=== PATIENT | female | born 1955 | race Caucasian/White ===

== ENCOUNTER 2020-04-03 06:02 | Day surgery (SDC) | payer SELFPAY, OTHER ==
[2019-11-02 10:58] VITALS: BMI 36.3
[2020-03-29 09:59] VITALS: BMI 36.3
--- NOTE | 2020-04-02 17:10 | HP.PCM_ITS ---
- Problem List (1) Incomplete uterovaginal prolapse Status: Chronic Comment: combo case with mike. plan [facility] BSO History and Physical Date of Admission: 04/03/20 Intake Vital Signs 03/29/20 BMI 36.3 03/29/20 Height 5 ft 6 in 03/29/20 Weight: 218 lb 03/29/20 BMI 35.2 03/29/20 BP 140/96 H Intake Visit Reasons: pre op Chief Complaint: pre op [facility] BSO 04/03/2020 [employer] Table [employer]er Required: No Is patient in pain?: No Allergies No Known Allergies Allergy (Unverified 03/29/20 09:59) Medications furosemide 20 mg tablet 20 mg PO DAILY 11/02/19 [History Confirmed 03/29/20] levothyroxine 150 mcg tablet 150 mcg PO DAILY 11/02/19 [History Confirmed 03/29/20] lisinopril 10 mg tablet 10 mg PO DAILY 11/02/19 [History Confirmed 03/29/20] Is last menstrual period known: No Post menopausal: Yes Patient : No : No [facility] Medical History Diabetes (Acute) Thyroid disorder (Acute) Surgical History H/O tubal ligation (Acute) Knee joint replacement status (Acute) Family History Mother Congestive heart failure Social History (Updated 03/29/20 @ 10:[address] 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 HPI pre op: Details: SAMY TILLEY is a 64 year old who presents for ROS Const Constitutional: Denies fatigue, fever(s), headache(s), increased appetite, poor appetite, weight gain or weight loss ENT ENT: Denies dizziness or dry mouth Cardio Card: Denies chest pain Resp Resp: Denies cough or dyspnea GI GI: Reports as per HPI; denies abdominal pain, constipation, nausea or vomiting Musc Musc: Denies joint pain, back pain or muscle weakness Skin Skin/Breast: Denies hair loss, change in hair, dry skin, breast lump, breast pain or breast skin changes Neuro Neuro: Denies dizziness Psych Psych: Denies anxiety or depression Endo Endo: Denies cold intolerance, excessive sweating, heat intolerance or increased thirst Marcelo/Lymph Hematologic/Lymphatic: Denies easy bleeding, Denies easy bruising, Denies enlarged lymph nodes Exam Const General: cooperative, healthy appearing, comfortable, no acute distress, well developed Orientation: alert [facility] Head: normal to inspection, normocephalic Ears: hearing grossly normal bilaterally, external ears normal Nose: external nose normal, nares normal Face and sinus: normal facial exam Neck Neck: normal visual inspection, no lymphadenopathy, trachea midline Thyroid: thyroid normal Chest Chest palpation & inspection: normal inspection of the chest Resp Effort & Inspection: normal respiratory effort Auscultation: clear to auscultation bilaterally Cardio Rate: regular rate Rhythm: regular rhythm Heart Sounds: S1 normal, S2 normal GI Inspection: normal to inspection, non-distended Palpation: soft, no hepatosplenomegaly Musc Cervical Spine: other Other: gross motor intact no deficits, full bilateral strength Skin General: no rashes or lesions noted Neuro General: alert, awake, moves all extremities, no focal motor deficits Motor: muscle tone normal throughout Extrem General: normal to inspection, no pedal edema Psych Appearance: grossly normal Mental Status: mental status grossly normal Affect: normal affect Speech and Movement: speech and movement normal Assessment & Plan Problems 1. Incomplete uterovaginal prolapse N81.2 combo case with mike. plan [facility] BSO Plan After discussing the patient's diagnosis and treatment plan options, patient wishes to proceed with surgical management. I have discussed with the patient the risks, benefits, and alternatives of the procedure which include but are not limited to risks of anesthesia, bleeding, infection, possible damage to bowel, bladder, or surrounding vasculature which could lead to additional surgery to evaluate any complications. Patient agrees to procedure and wishes to proceed. ACOG/uptodate references given for additional information regarding procedure. Coding Level of Care Code No Charge Diagnoses Incomplete uterovaginal prolapse N81.2 UPDATE- I have seen the patient and performed any clinically relevant updates to the history and physical exam. Katharina Montemayor MD
[2020-04-03] VITALS (15 sets, daily range): BP systolic 111–161; BP diastolic 50–75; PULSE 62–106; RESP 14–18; TEMP 36.1–37.3; O2SAT 96–100; BMI 36.7; BMI 36.8
--- NOTE | 2020-04-03 | HYST_PTH ---
PATIENT: SAMY TILLEY [place] [facility] [place][id number] AGE/SX: 64/F ROOM: RE04/03/[address]: Dr. Katharina Montemayor MD : [id number] BED: DIS: 04/04/2020 SPEC #: [id number] RECD: 04/03/20 09:43 STATUS: LEXA GONZALEZJose #: [id number] NICANOR: 04/03/20 00:[address]: Katharina Montemayor DEPT: SURGICAL PATHOLOGY RECD BY: Isaias Starks ENTERED: 04/04/20 09:43 SP TYPE: HYSTERECT OTHR DR: MD Dr. Krystle Coates MD Tissues: Uterus, NOS Procedures: Surgery Specimen Level V HEADER OPERATION: ERAS, vaginal hysterectomy PRE-OP DIAGNOSIS: Uterovaginal prolapse TISSUE SUBMITTED: Uterus MICROSCOPIC DIAGNOSIS Uterus, hysterectomy: Cervix - squamous metaplasia, chronic inflammation, nabothian cysts and hyperkeratosis. Endometrial polyp - simple hyperplasia without atypia. [place] endometrium - inactive endometrium with focal cystic change. Myometrium - adenomyosis. AM:eduin 04/05/ MICROSCOPIC DESCRIPTION Slides are reviewed. GROSS DESCRIPTION Received in fixative is one container labeled with the patient's name and designated uterus. The specimen consists of a uterus with attached cervix without fallopian tubes or ovaries measuring 7.5 x 4 x 3.5 cm and weighing 66 gm. The ectocervix is grossly unremarkable. The cervical os is oval in contour. The endocervical canal measures 2.6 cm in length and is grossly unremarkable. The triangular endometrial cavity measures 3.5 x 2.8 cm. The endometrium contains a fleshy pink-curtis polyp measuring 2.5 x 1.5 x 1 cm. The polyp is not indurated. The myometrium measures 1.3 cm in greatest thickness and is free of mass lesions. Migration Specialist sections are submitted in eight cassettes as follows: 1 - anterior cervix, 2 - posterior cervix, 3 & 4 - anterior uterine wall, 5 & 6 - posterior uterine wall, 7 & 8 - endometrial polyp, totally submitted. / AM:eduin 04/04/20 TC:1 CPT: 67684
[2020-04-03 07:00] LABS: Hematocrit 43.2 % (37-47); Hemoglobin 13.6 g/dL (12.0-15.0); Mean Corp Hgb Conc 31.5 g/dL (32-36); Mean Corpuscular Hgb 30.7 pg (27.0-32.0); Mean Corpuscular Volume 97.5 fL (81-99); Mean Platelet Vol. 9.8 fl (6.2-12.0); Platelet Count 283 K/mm3 (150-450); RBC Distribution Width CV 13.1 % (11.6-14.6); RBC Distribution Width SD 46.6 fl (35.1-43.9); Red Blood Count 4.43 M/mm3 (4.2-5.4); White Blood Count 6.3 K/mm3 (4.4-11.0)
[2020-04-03] MEDS: dexAMETHasone 10 MG/ML Vial 8 MG IV (07:00)
[2020-04-03 07:10] LABS: Magnesium 2.1 mg/dL (1.6-2.6)
--- NOTE | 2020-04-03 07:24 | PCM.HP.STD ---
History of Present Illness Date of Admission: 04/03/20 Chief Complaint: pelvic organ prolapse, stress incontinence The patient is a 64 year old F who presented to the office with pelvic organ prolapse. After discussing the risks benefits and alternatives, she agreed to proceed with evaluation and surgical intervention. Risks discussed included but not limited to the risks of anesthesia, bleeding, infection and injury in addition to the risk of COVID-19 and complications from that. She underwent urodynamics and office cystoscopy in preparation. Past Medical History Past Medical History (Chronic Problems): Chronic Problems (Last Reviewed 04/03/20 @ 07:[address] Krystle Christianson MD) Incomplete uterovaginal prolapse (Chronic) combo case with mike. plan [facility] Medical History: Medical History (Last Reviewed 04/03/20 @ 07:[address] Krystle Christianson MD) Diabetes E11.9 diet controlled Thyroid disorder E07.9 Allergies No Known Allergies Allergy (Unverified 03/29/20 09:59) Home Medications: Ambulatory Orders Medication Instructions Recorded furosemide 20 mg tablet 20 mg PO DAILY 11/02/19 levothyroxine 150 mcg tablet 150 mcg PO DAILY 11/02/19 lisinopril 10 mg tablet 10 mg PO DAILY 11/02/19 Surgical History: Surgical History (Last Reviewed 04/03/20 @ 07:[address] Krystle Christianson MD) H/O tubal ligation Z98.51 Knee joint replacement status Z96.659 bialteral Smoking Status: Never smoker Tobacco Use: Non-smoker Review of Systems Constitutional: Denies: Anorexia, Fever, Weight Change Eyes: Denies: Drainage, Vision Change HEENT: Denies: Difficulty Hearing, Difficulty Swallowing Cardiovascular: Denies: Chest Pain, Chest Pressure Respiratory: Denies: Cough, Shortness of Breath Gastrointestinal: Denies: Abdominal Pain, Nausea, Vomiting Genitourinary: Denies: Dysuria, Hematuria Gynecological: Denies: Breast symptoms Musculoskeletal: Denies: Muscle pain Skin: Denies: Wounds Neurological: Denies: Difficulty swallowing, Tremor Endocrine: Denies: Change in Body Habitus VTE Information - Inpt Only VTE Present on Admission: Yes VTE Mechan Device Prophylaxis: SCD's VTE Pharm Prophylaxis ordered?: Yes - Physical Exam Vitals/I&O's: Body Mass Index (BMI) 36.3 General: Alert, Oriented x3, Cooperative, No apparent distress HEENT: Atraumatic, Normocephalic Oral: Moist Mucosa Neck: Supple, Trachea Midline Lungs: Normal air movement Cardiovascular: Regular rate, Regular Rhythm Abdomen: Soft, Non Tender, Non-Distended Extremities: No clubbing, No cyanosis Skin: No rashes Musculoskeletal: No Muscle Wasting Neurological: Cranial nerves II-XII grossly intact Psych/Mental Status: Normal Affect, Appropriate, Alert and oriented to time, place, person, mood and affect Laboratory Results 04/03/20 06:46: WBC 6.3, RBC 4.43, Hgb 13.6, Hct 43.2, MCV 97.5, MCH 30.7, MCHC 31.5 L, RDW Std Deviation 46.6 H, RDW Coeff of Gama 13.1, Plt Count 283, MPV 9.8 04/03/20 06:46: Magnesium 2.1 04/03/20 06:46: Blood Type Pending, Antibody Screen Pending Current Medications Lactated Ringer's () 1,000 mls @ 40 mls/hr IV .Q25H LA Cefazolin Sodium 2 gm/ Sodium (Chloride) 110 mls @ 150 mls/hr IV PREOP ONE Stop: 04/03/20 07:43 Lactated Ringer's () 1,000 mls @ 70 mls/hr IV .[id number] LA Insulin Human Lispro (Humalog Kwikpen (Bkc)) 0 unit SC Q4H PRN PRN; Protocol PRN Reason: BG >/= 180, SEE PROTOCOL Assessment/Plan proceed with hysterectomy and anterior repair, sacrospinous ligament fixation, possible dermis, sling and cystoscopy Procedure Criteria Procedure Type: Elective COVID Risk Discussion: The surgeon/proceduralist and patient have discussed in detail the risk of exposure to and/or potential harm posed by the COVID-19 virus with having a surgery/procedure at this time versus the risk of delaying the surgery/procedure. It is not possible to know either the risk of delaying the surgery or procedure or chance of getting an infection with perfect accuracy, but a joint decision was made between the patient and the surgeon/proceduralist to proceed at this time with the scheduled surgery/procedure as indicated on the consent form.
--- NOTE | 2020-04-03 07:30 | OP.PCM_ITS ---
Problem List (1) Stress incontinence Status: Acute (2) Incomplete uterovaginal prolapse Status: Chronic Comment: [facility] Report of Operation Date of Procedure: 04/03/20 Pre-Operative Diagnosis: incomplete uterovaginal prolapse, stress incontinence Post-Operative Diagnosis: same Surgery/Procedure Performed:: Cystoscopy, bilateral ureteral catheter insertion, closure of cystotomy, perineoplasty, aborted anterior repair, aborted sacrospinous ligament fixation Type of Anesthesia:: General Drains: ryan catheter Estimated Blood Loss (mL): 50cc Description of Procedure: The patient is a 64-year-old female with incomplete uterovaginal prolapse most significantly due to uterine prolapse and cystocele. She desired surgical intervention after failing a pessary. She was evaluated with urodynamics and office cystoscopy. Risks benefits and alternatives were discussed including the risks of anesthesia, bleeding, infection, injury, and that of the current pandemic COVID-19 infection and complication due to this. She understood the risks and desired to proceed. The patient was taken to the operating room and placed on the operating room table. Anesthesia monitored the head, neck, airway, IV access and vital signs throughout the case. Once anesthesia was appropriately administered the patient was placed into dorsal lithotomy in Trendelenburg position. She was then prepped and draped in usual sterile fashion. Her urinary bladder was emptied with a Ryan catheter. At this time the hysterectomy portion of the procedure was performed by Dr. Montemayor. The patient had significant redundant anterio r vaginal wall secondary to her longstanding pelvic organ prolapse. Her anatomy was significantly distorted. Upon taking down the left uterine pedicle, there was some concern regarding a tubular structure being at the ureter versus calcified vessel. The procedure was halted and a cystoscopy was performed. The left ureteral orifice was easily identified and was intubated with a 5 Syriac whistle-tip catheter. The catheter was inserted to 20 cm and secured to the ryan with a steris strip. It was inserted without difficulty and there was no blood from the orifice. It was clear that the tissue in question was not the ureter, and at this time the hysterectomy procedure was continued. After closure of the cuff I began to work on anterior repair. The patient's posterior vaginal wall was well supported and her cuff line was actually on the anterior vaginal wall and distal to the apex of her vault by approximately 1-1/2 to 2 cm. The anterior vaginal wall was injected submucosally with vasopressin for hydrostatic dissection and hemostatic control. Both sharp and blunt dissection was performed. There was essentially no pubocervical fascia that was able to be identified. I then proceeded to palpate and dissect out the patient's sacrospinous ligaments by first identifying the ischial spines. This was difficult secondary to needing to to dissect well beyond the cuff line in order to reach her ligaments appropriately. My dissection was performed more laterally due to this distortion. After this difficult dissection, the Capio was used to pass the suture through the sacrospinous ligaments bilaterally. The dermis was cut to size. At the area of the bladder neck bilaterally the dermis was attached with 2-0 Vicryl in interrupted sutures 3 areas. Laterally at the area of the white line bilaterally, and medially in the periurethral space at the area of the bladder neck. The sutures through the sacrospinous ligaments were then passed through the dermis. I first attempted to pass the Ethibond suture through the vaginal apex on the patient's right side when I noted that the cuff line had opened on the patient's right side. Dr. Montemayor closed the cuff line after I passed the Ethibond through the apex. At this time I passed the suture on the patient's left side through the lateral aspect of the apex. Following placement, dermis lay flat and in good position. A cystourethroscopy was then performed. Immediately upon entry into the urinary bladder there was blood identified. The bladder was emptied and re-visualized. It was difficult to ascertain the exact location of the cystotomy secondary to the redundancy of the urinary bladder and the active bleeding. At this time I removed the dermis and opened the cuff line for better inspection of the urinary bladder and closure of the cystotomy. There was urine leaking from the patient's left lateral aspect of the bladder wall. This did not appear to be involving the left ureter. This was closed with a 3-0 Vicryl and then imbricated with 2-0 Vicryl. The cystotomy was approximately 5mm in size. Upon reentry into the urinary bladder there was one other area on the right lateral aspect of the bladder with a poke hole lesion with no obvious cystotomy. The right ureteral orifice was intubated with a 5 Syriac whistle-tip catheter without difficulty or blood. It was inserted to 20 cm. The urine draining from the cystoscope was clear. The Ryan catheter was inserted. Dr. Montemayor came in for closure of the cuff. The posterior vaginal wall was injected submucosally at the perineal body and the vaginal mucosa was dissected free from the fascia. The perineal body was then brought together with interrupted 2-0 Vicryl closure. The vaginal mucosa was then closed with running interlocking 2- 0 Vicryl. The vagina was packed with Premarin cream and vaginal packing. The patient was awakened and taken to the recovery room in good condition. At this time the patient's urine was pink in the Ryan catheter tubing. Grafts/Implants Used: None - Complications Cystotomy - Admit VTE Documentation VTE Present on Admission: Yes VTE Mechan Device Prophylaxis: SCD's VTE Pharm Prophylaxis ordered?: Yes
--- NOTE | 2020-04-03 07:32 | DCINST_ITS ---
Discharge Diet: No Restrictions Discharge Activity: Return to Normal Activity, May not drive while taking narcotic pain medications. May resume sexual activity in: 8 weeks Call your doctor if your incision/area has: Continuous Slow Oozing, Sudden Increased Bleeding, Increased Pain/ Swelling, Foul Smelling Discharge Call your doctor if you observe: Fever of 101 or Higher, Inability to urinate, Inability to have a bowel movement, Calf discomfort, Uncontrolled pain Catheter: Gregory to leg bag Allergies/Adverse Reactions: Allergies No Known Allergies Allergy (Unverified 03/29/20 09:59) Medications to take at Discharge furosemide 20 mg tablet 20 mg PO DAILY 11/02/19 levothyroxine 150 mcg tablet 150 mcg PO DAILY 11/02/19 lisinopril 10 mg tablet 10 mg PO DAILY 11/02/19 Naproxen [Naprosyn] 250 - 500 mg PO Q8H PRN PRN #30 tab 04/03/20 Oxycodone HCl/Acetaminophen [Percocet 5-325] 1 - 2 tab PO Q6H PRN PRN 7 Days #15 tab 04/03/20 The following prescriptions were given: Naproxen [Naprosyn] 250 - 500 mg PO Q8H PRN PRN #30 tab PRN Reason: MILD PAIN Transmission Status: Received by [facility] Oxycodone HCl/Acetaminophen [Percocet 5-325] 1 - 2 tab PO Q6H PRN PRN 7 Days #15 tab PRN Reason: Pain Transmission Status: Received by [facility] Orders to be completed after discharge: 12 Lead EKG [CVS] Time Frame: 03/27/20, Facility: [facility], Location: Cardiovascular Services Basic Metabolic Profile (BMP) Time Frame: 03/27/20, Facility: [facility], Location: Laboratory Thyroid Stim Hormone (TSH) Time Frame: 03/27/20, Facility: [facility], Location: Laboratory Primary Care Physician: Roman Hansen MD [Primary Care Provider] - Test Results: Test results from this visit will be discussed in further detail at your follow- up appointment, if applicable. Please Follow Up With: Krystle Christianson MD When: we will arrange cystogram in 2 weeks Proposed Discharge Date: 04/04/20
[2020-04-03] MEDS: Acetaminophen 500 MG Tablet 1000 MG PO ×3 (07:35→23:36)
[2020-04-03] MEDS: Celecoxib 200 MG Capsule 400 MG PO (07:35)
[2020-04-03] MEDS: Gabapentin 600 MG Tablet PO (07:35)
[2020-04-03] MEDS: Scopolamine 1mg/72hr Patch 1 PATCH TRANSDERM. (07:35)
[2020-04-03] MEDS: Enoxaparin 40 MG/0.4 ML Syringe SC (07:36)
[2020-04-03] MEDS: Lactated Ringers 1,000 ML 40 ML IV (07:50)
[2020-04-03 08:10] LABS: Bedside Glucose 94 mg/dL (70-110)
[2020-04-03] MEDS: Cefazolin 2 GM in 0.9% Normal Saline 100 ML IV (08:11)
--- NOTE | 2020-04-03 08:22 | OP.PCM_ITS ---
Problem List (1) Incomplete uterovaginal prolapse Status: Chronic Comment: combo case with mike. plan [facility] BSO Report of Operation Date of Procedure: 04/03/20 Pre-Operative Diagnosis: uterovaginal prolapse Post-Operative Diagnosis: Plus normal ovaries and tubes bilaterally Surgery/Procedure Performed:: tvh Description of Surgical Findings:: Normal ovaries and tubes bilaterally very severe prolapse with large amount of redundant tissue particularly posteriorly. 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 Preoperative antibiotics and SCDs and Ryan catheter was placed inside the bladder. Weighted speculum was placed in the vagina and the anterior and posterior lip of the cervix was grasped with 2 Danya clamps and circumferentially injected with dilute vasopressin. A circumferential incision was made with a scalpel and the posterior cul-de-sac was entered into sharply and a longneck speculum was placed. The anterior cul-de-sac was also dissected down and entered into sharply and the uterosacral ligaments were clamped cut and suture ligated bilaterally followed by the cardinal ligaments which were Clamped cut and suture ligated bilaterally with 0 Monocryl. With the first pedicle on the patient's left side there is a calcified vessel noted inferior to the clamp and to ensure this was not ureteral a cystoscopy was performed by Dr. Christianson and ureteral stent placed easily and therefore this was confirmed to be a calcified vessel. Stent was left in place the uterus serially descended and progressive bites were taken bilaterally up to the level of the utero-ovarian ligament bilaterally which was clamped transected and double ligated with 0 Monocryl suture and 0 Vicryl free tie. Bilateral fallopian tubes and ovaries were visualized and noted be within normal limits but were difficult to safely reach for removal and therefore the BSO was aborted. This had been previously discussed with the patient balancing the risk versus benefit of removal. The vagina was closed with [id number] 0 Vicryl pop offs including the posterior and anterior peritoneum in the reapproximation. Excellent hemostasis was noted. All instruments removed from the vagina clear urine was noted at the end of the procedure and Dr. Christianson began her portion of the procedure. Grafts/Implants Used: ureteral stent - Complications none - Admit VTE Documentation VTE Present on Admission: No VTE Mechan Device Prophylaxis: SCD's VTE Pharm Prophylaxis ordered?: Yes Multi Select Codes - Urinary/Genital Urinary/Genital CPT Codes: 89724 TVH <250 gr uterus
--- NOTE | 2020-04-03 08:25 | DCINST_ITS ---
Discharge Diet: No Restrictions Discharge Activity: Return to Normal Activity, May not drive while taking narcotic pain medications. May resume sexual activity in: 6-8 weeks Call your doctor if your incision/area has: Continuous Slow Oozing, Sudden Increased Bleeding, Increased Pain/ Swelling, Foul Smelling Discharge Call your doctor if you observe: Fever of 101 or Higher, Inability to urinate, Inability to have a bowel movement, Calf discomfort, Uncontrolled pain Allergies/Adverse Reactions: Allergies No Known Allergies Allergy (Unverified 03/29/20 09:59) Medications to take at Discharge furosemide 20 mg tablet 20 mg PO DAILY 11/02/19 levothyroxine 150 mcg tablet 150 mcg PO DAILY 11/02/19 lisinopril 10 mg tablet 10 mg PO DAILY 11/02/19 Naproxen [Naprosyn] 250 - 500 mg PO Q8H PRN PRN #30 tab 04/03/20 Oxycodone HCl/Acetaminophen [Percocet 5-325] 1 - 2 tab PO Q6H PRN PRN 7 Days #15 tab 04/03/20 The following prescriptions were given: Naproxen [Naprosyn] 250 - 500 mg PO Q8H PRN PRN #30 tab PRN Reason: MILD PAIN Transmission Status: Received by [facility] Oxycodone HCl/Acetaminophen [Percocet 5-325] 1 - 2 tab PO Q6H PRN PRN 7 Days #15 tab PRN Reason: Pain Transmission Status: Received by [facility] Orders to be completed after discharge: 12 Lead EKG [CVS] Time Frame: 03/27/20, Facility: [facility], Location: Cardiovascular Services Basic Metabolic Profile (BMP) Time Frame: 03/27/20, Facility: [facility], Location: Laboratory Thyroid Stim Hormone (TSH) Time Frame: 03/27/20, Facility: [facility], Location: Laboratory Primary Care Physician: Roman Hansen MD [Primary Care Provider] - Test Results: Test results from this visit will be discussed in further detail at your follow- up appointment, if applicable. Please Follow Up With: Krystle Christianson MD When: call office for appt
[2020-04-03] MEDS: Ondansetron 4 MG/2 ML Vial IV (08:30)
[2020-04-03] MEDS: Vasopressin 20 UNITS/ML Vial (08:37)
[2020-04-03 08:43] LABS: Anion Gap 6 (5-15); BUN 15 mg/dL (7-18); BUN/Creat Ratio 20.5 RATIO (10-20); Calcium,Total 8.9 mg/dL (8.5-10.1); Chloride 104 mmol/L (98-107); Creatinine, Serum 0.73 mg/dL (0.55-1.02); EST Glomerular Filtration Rate 85 mL/min (>60); Est Glom Filt Rate - Afr Amer 103 mL/min (>60); Estimated Creatinine Clearance 69.14 ml/min; Glucose 81 mg/dL (74-106); Potassium 3.6 mmol/L (3.5-5.1); Sodium Level 139 mmol/L (136-145); Thyroid Stim Hormone (TSH) 2.45 uIU/mL (0.358-3.74)
[2020-04-03] MEDS: Estrogens,Conj. 1 Tube 1 DOSE (12:41)
--- NOTE | 2020-04-03 13:13 | EKG12_ITS ---
Test Reason : PREOP Blood Pressure : / mmHG Vent. Rate : 064 BPM Atrial Rate : 064 BPM P-R Int : 154 ms QRS Dur : 074 ms QT Int : 386 ms P-R-T Axes : 028 016 023 degrees QTc Int : 398 ms Normal sinus rhythm Normal ECG No previous ECGs available Confirmed by DARY TOURE ([id number]), medical transcription editor DUYEN TILLEY ([id number]) on 04/05/2020 1:28:09 PM Referred By: Katharina Montemayor Confirmed By:DARY TOURE
[2020-04-03] MEDS: Lactated Ringers 1,000 ML 70 ML IV ×2 (13:41→19:37)
[2020-04-03] MEDS: Cefazolin 1 GM/50 ML BAG IV ×2 (16:26→23:35)
[2020-04-03] MEDS: Ketorolac 30 MG/ML Syringe IV ×2 (16:26→23:35)
[2020-04-03] MEDS: 0.9% Saline Lock 10 ML Syringe IV (16:27)
[2020-04-03] MEDS: Docusate Sodium 100 MG Capsule PO (19:37)
[2020-04-04 03:47] VITALS: BP 114/52; PULSE 62; RESP 18; TEMP 37.1; O2SAT 98; BMI 36.8
[2020-04-04] MEDS: Acetaminophen 500 MG Tablet 1000 MG PO ×2 (04:58→12:52)
[2020-04-04] MEDS: Levothyroxine 150 MCG Tablet PO (04:58)
[2020-04-04] MEDS: Ketorolac 30 MG/ML Syringe IV ×2 (04:59→12:08)
[2020-04-04] MEDS: Cefazolin 1 GM/50 ML BAG IV (04:59)
--- NOTE | 2020-04-04 06:35 | PCM.PN.GU ---
Physical Exam Subjective: Awake, comfortable, some discomfort related to positioning. We discussed the procedure and future plans. - Physical Exam Vital Signs Temp 98.7 F 04/04/20 03:47 Pulse 62 04/04/20 03:47 Resp 18 04/04/20 03:47 BP 114/52 L 04/04/20 03:47 Pulse Ox 98 04/04/20 03:47 Intake & Output 04/02/20 04/03/20 04/04/20 23:59 23:59 23:59 Intake Total 1923.16 / 1923.16 443 / 443 Output Total 2225 / 2225 350 / 350 Balance -300.84 / -300.84 93 / 93 Weight: 100.2 kg Intake: Intake, IV Amount 4.16 / 1923.16 443 / 443 Cefazolin 1 GM/50 ML1 gm In 50 50 / 50 100 / 100 ml @ 100 mls/hr IV Q8H [facility] Rx#: [id number] Cefazolin 10 GM/50 ML In 0.9% 110 / 110 Normal Saline 100 ML @ 150 mls/ hr IV PREOP ONE Rx#:[id number] Lactated Ringers 1,000 ML @ 40 1000 / 1000 mls/hr IV .Q25H [facility] Rx#: [id number] Lactated Ringers 1,000 ML @ 70 659.16 / 659.16 343 / 343 mls/hr IV .[id number] [facility] Rx#: [id number] Magnesium Sulfate 2.5 GM In 0.9 105 / 105 % Normal Saline 100 ML @ 210 mls/hr IV X1 [facility] Rx#:[id number] Output: Urine 2225 / 2225 350 / 350 General: Alert, Oriented x3, Cooperative, No apparent distress HEENT: Atraumatic, Normocephalic Oral: Moist Mucosa Neck: Supple Lungs: Normal air movement Cardiovascular: Regular rate Abdomen: Soft, Non Tender, Non-Distended Rectal: Exam deferred Extremities: No Calf Tenderness, - - SCD's in place Skin: No rashes Neurological: Cranial nerves II-XII grossly intact, Neuro grossly intact Psych/Mental Status: Normal Affect Comment: ryan draining clear urine in tubing and bag Laboratory Tests Past 24 Hrs 04/03/20 04/03/20 04/03/20 06:46 06:46 06:46 WBC 6.3 RBC 4.43 Hgb 13.6 Hct 43.2 MCV 97.5 MCH 30.7 MCHC 31.5 L RDW Std Deviation 46.6 H RDW Coeff of Gama 13.1 Plt Count 283 MPV 9.8 Sodium Potassium Chloride Carbon Dioxide Anion Gap BUN Creatinine Estim Creat Clear Calc Est GFR (MDRD) Af Amer Est GFR (MDRD) Non-Af BUN/Creatinine Ratio Glucose Calcium Magnesium 2.1 TSH Blood Type O POSITIVE Antibody Screen NEGATIVE 04/03/20 04/04/20 04/04/20 06:46 06:15 06:15 WBC Pending RBC Pending Hgb Pending Hct Pending MCV Pending MCH Pending MCHC Pending RDW Std Deviation Pending RDW Coeff of Gama Pending Plt Count Pending MPV Sodium 139 Pending Potassium 3.6 Pending Chloride 104 Pending Carbon Dioxide 29.0 Pending Anion Gap 6 Pending BUN 15 Pending Creatinine 0.73 Pending Estim Creat Clear Calc 69.14 Est GFR (MDRD) Af Amer 103 Pending Est GFR (MDRD) Non-Af 85 Pending BUN/Creatinine Ratio 20.5 H Pending Glucose 81 Pending Calcium 8.9 Pending Magnesium TSH 2.45 Blood Type Antibody Screen Medical Necessity - Tobacco Use Smoking Status: Never smoker Tobacco Use: Non-smoker Assessment/Plan All Active Problems (Last Reviewed 04/03/20 @ 07:[address] Krystle Christianson MD) Stress incontinence (Acute) Doing well this morning. Await labs. Ambulate and supportive care. Home later today with ryan catheter to leg bag. Plan for cystogram in 2 weeks with ryan removal if negative.
[2020-04-04 06:55] LABS: Hematocrit 35.3 % (37-47); Hemoglobin 11.3 g/dL (12.0-15.0); Mean Corpuscular Hgb 31.2 pg (27.0-32.0); Mean Corpuscular Volume 97.5 fL (81-99); Mean Platelet Vol. 9.8 fl (6.2-12.0); Platelet Count 279 K/mm3 (150-450); RBC Distribution Width CV 13.2 % (11.6-14.6); RBC Distribution Width SD 47.1 fl (35.1-43.9); Red Blood Count 3.62 M/mm3 (4.2-5.4); White Blood Count 11.4 K/mm3 (4.4-11.0)
[2020-04-04 07:07] VITALS: O2SAT 96
[2020-04-04 07:11] LABS: Anion Gap 5 (5-15); BUN 12 mg/dL (7-18); BUN/Creat Ratio 14.9 RATIO (10-20); Calcium,Total 8.1 mg/dL (8.5-10.1); Chloride 103 mmol/L (98-107); EST Glomerular Filtration Rate 76 mL/min (>60); Est Glom Filt Rate - Afr Amer 92 mL/min (>60); Estimated Creatinine Clearance 63.09 ml/min; Glucose 123 mg/dL (74-106); Potassium 4.5 mmol/L (3.5-5.1); Sodium Level 137 mmol/L (136-145)
[2020-04-04 07:35] VITALS: BMI 36.8
--- NOTE | 2020-04-04 08:03 | PCM.PN.OB ---
Patient Problems: Active and Suspected Problems (Last Reviewed 04/03/20 @ 07:[address] Krystle Christianson MD) Stress incontinence (Acute) Subjective: Doing well, no complaints.Pain controlled. Denies CP, SOB, N,V. tolerating po. - Physical Exam Vitals/I&O's: Vital Signs Temp Pulse Resp BP Pulse Ox 98.7 F 62 18 114/52 L 96 04/04/20 03:47 04/04/20 03:47 04/04/20 03:47 04/04/20 03:47 04/04/20 07:07 Oxygen Flow Rate (L/min) 6 Oxygen Delivery Method Room Air Weight: 220 lb 14.451 oz Body Mass Index (BMI) 36.7 Intake and Output for Last 24 Hours 04/02/20 04/03/20 04/04/20 23:59 23:59 23:59 Intake Total 1924.16 / 1924.16 443 / 443 Output Total 2225 / 2225 350 / 350 Balance -300.84 / -300.84 93 / 93 General: Alert, Oriented x3 Abdomen: Soft, Non-Distended Laboratory Results 04/03/20 06:46: Blood Type O POSITIVE, Antibody Screen NEGATIVE 04/03/20 06:46: Sodium 139, Potassium 3.6, Chloride 104, Carbon Dioxide 29.0, Anion Gap 6, BUN 15, Creatinine 0.73, Estim Creat Clear Calc 69.14, Est GFR (MDRD) Af Amer 103, Est GFR (MDRD) Non-Af 85, BUN/Creatinine Ratio 20.5 H, Glucose 81, Calcium 8.9, TSH 2.45 04/03/20 07:30: POC Glucose 94 04/04/20 06:15: Sodium 137, Potassium 4.5, Chloride 103, Carbon Dioxide 29.0, Anion Gap 5, BUN 12, Creatinine 0.80, Estim Creat Clear Calc 63.09, Est GFR (MDRD) Af Amer 92, Est GFR (MDRD) Non-Af 76, BUN/Creatinine Ratio 14.9, Glucose 123 H, Calcium 8.1 L 04/04/20 06:15: WBC 11.4 H, RBC 3.62 L, Hgb 11.3 L, Hct 35.3 L, MCV 97.5, MCH 31.2, MCHC 32.0, RDW Std Deviation 47.1 H, RDW Coeff of Gama 13.2, Plt Count 279, MPV 9.8 Current Medications Acetaminophen (Tylenol) 1,000 mg PO Q6 [facility] Last Admin: 04/04/20 04:58 Dose: 1,000 mg Documented by: Docusate Sodium (Colace) 100 mg PO BID [facility] Last Admin: 04/03/20 19:37 Dose: 100 mg Documented by: Enoxaparin Sodium (Lovenox) 40 mg SC DAILY [facility] Lactated Ringer's () 1,000 mls @ 70 mls/hr IV .[id number] [facility] Stop: 04/04/20 12:54 Last Infusion: 04/04/20 05:30 Dose: 70 mls/hr Documented by: Cefazolin Sodium () 1 gm in 50 mls @ 100 mls/hr IV Q8H [facility] Last Infusion: 04/04/20 05:30 Dose: Infused Documented by: Sodium Chloride () 250 mls @ 15 mls/hr IV .[id number] PRN PRN Reason: Saline Flush Sodium Chloride () 250 mls @ 15 mls/hr IV .[id number] PRN PRN Reason: Additional IVPB Infusion Ketorolac Tromethamine (Toradol (Bkc)) 30 mg IV Q6 [facility] Stop: 04/05/20 00:01 Last Admin: 04/04/20 04:59 Dose: 30 mg Documented by: Levothyroxine Sodium (Synthroid) 150 mcg PO DAILY@0600 [facility] Last Admin: 04/04/20 04:58 Dose: 150 mcg Documented by: Lisinopril (Zestril) 10 mg PO DAILY [facility] Magnesium Oxide (Mag-Ox 400) 400 mg PO DAILY PRN PRN PRN Reason: Constipation Nutritional Formula (Lactose Free) (Ensure Enlive) 120 ml PO TIDCM [facility] Ondansetron HCl (Zofran Odt) 4 mg PO Q6H PRN PRN PRN Reason: NAUSEA Oxycodone HCl (Oxyir) 5 - 10 mg PO Q4H PRN PRN PRN Reason: Pain Score 4-10/10 Sodium Chloride () 10 - 40 ml IV UD PRN PRN Reason: SALINE FLUSH Last Admin: 04/03/20 16:27 Dose: 10 ml Documented by: Medical Necessity - Tobacco Use Smoking Status: Never smoker Tobacco Use: Non-smoker Assessment/Plan All Active Problems (Last Reviewed 04/03/20 @ 07:[address] Krystle Christianson MD) Stress incontinence (Acute) s/p postop day # [address] Montemayor/Dr. Christianson routine post op care; see Dr. Christianson's last note and discharge instruction.
[2020-04-04] MEDS: Docusate Sodium 100 MG Capsule PO (08:51)
[2020-04-04] MEDS: Lisinopril 10 MG Tablet PO (08:51)
[2020-04-04] MEDS: Enoxaparin 40 MG/0.4 ML Syringe SC (08:51)
[2020-04-04 09:47] VITALS: BP 107/51; PULSE 61; RESP 18; TEMP 37; O2SAT 95
[2020-04-04] MEDS: Polyethylene Glycol 3350 17 GM PACKET PO (09:58)
[2020-04-04 11:35] VITALS: BMI 36.8
[2020-04-04] MEDS: 0.9% Saline Lock 10 ML Syringe IV (12:08)
== END 2020-04-04 13:01 | disposition home or self-care (01) ==
LOC: SDC 06:04 → AC 06:20 → MS3 08:31
PROVIDERS: Anesthesiology; Urology; Referring Provider Obstetrics & Gynecology; Visit Provider Obstetrics & Gynecology
PROC: (CPT 58260; principal; 2020-04-03 07:55)
PROC: (CPT 57260; 2020-04-03 07:55)
DX: N81.2 Incomplete uterovaginal prolapse (principal); N39.3 Stress incontinence (female) (male); N88.8 Other specified noninflammatory disorders of cervix uteri; N88.0 Leukoplakia of cervix uteri; N80.0 Endometriosis of uterus; I10 Essential (primary) hypertension; E11.9 Type 2 diabetes mellitus without complications; E07.9 Disorder of thyroid, unspecified; Z79.899 Other long term (current) drug therapy; Z11.59 Encounter for screening for other viral diseases
CPT/HCPCS: 00944; 51880; 52005; 57240; 57282; 58260; 36415; 80048; 82962; 83735; 84443; 85027; 86850; 86900; 86901; 87635; 88307; 93005; 99251; G2023; J7120; A4216; C1758; G0463; J2405; U0003

== ENCOUNTER 2020-04-09 23:10 | Emergency (ER) | payer OTHER, SELFPAY ==
[2020-04-03 15:43] VITALS: BMI 36.7
[2020-04-09 23:11] VITALS: BP 145/63; PULSE 89; RESP 16; TEMP 36.8; O2SAT 96; BMI 34.9
--- NOTE | 2020-04-09 23:32 | ED.VIS.GEN ---
History of Present Illness Chief Complaint: Gregory C/O Informant: Patient Onset: Today Narrative: Patient presents secondary to her Gregory catheter not wanting to drain correctly. She had surgery last week for uterovaginal prolapse. There was a bladder injury during the surgery and she went home with a Gregory catheter. Dr. Christianson called in and asked us to gently irrigate the catheter. Patient denies any pelvic pressure. She states the catheter has been functioning appropriately told he might when it did not want to drain correctly. She states she had some blood in her urine right after her surgery but it has been clear for the last several days. She denies fever or chills. - Past Medical History (1) Diabetes Status: Chronic (2) History of total vaginal hysterectomy (TVH) Status: Chronic Past Medical History - Allergies and Home Meds Allergies/Adverse Reactions: Allergies No Known Allergies Allergy (Verified 04/09/20 23:11) Primary Care Physician: Roman Hansen MD [Primary Care Provider] - Prior records reviewed: Yes Lives: Spouse/ Significant Other Smoking Status: Never smoker Review of Systems General: Denies: Chills, Fever Eyes: Denies: Visual changes - bilaterally ENT: Denies: Bilateral ear pain Cardiovascular: Denies: Chest pain Respiratory: Denies: Dyspnea, Cough Gastrointestinal: Denies: Abdominal pain, Vomiting, Diarrhea Musculoskeletal: Denies: Extremity Pain Skin: Denies: Rash Neurological: Denies: Headache Hematologic: Denies: Easy bruising, Easy bleeding Allergy: Denies: Uticaria Physical Exam Vital Signs/Narrative: Vital Signs Temp Pulse Resp BP Pulse Ox 04/09/20 23:11 98.2 F 89 16 145/63 H 96 Inital Vital Signs reviewed: Yes General: Well nourished, Well developed Head: Normocephalic ENT: Moist mucous membranes Neck: Supple Cardiovascular: Regular rate, Regular rhythm Respiratory: No distress, CTA bilaterally Abdomen: Soft, Nontender, Hypoactive bowel sounds Extremities: Nontender Skin: Normal color Neurological: Alert, Oriented x3 Psychological: Normal affect Diagnostic/Tx/Re-eval - Medical Decision Making Catheter was easily flushed by nursing staff. Fluid pushed and was easily withdrawn. Bedside ultrasound reveals a decompressed bladder. Patient states that the urine seem to be draining through the tube but would get caught in the final at the top of the collection bag and not drain into the bag itself. That seems to be working appropriately at this time. Patient be discharged home with her . ED Disposition - Plan for ED Patient: Disposition: Home or Assisted Living Instructions: ED Gregory Catheter Care Referrals: Krystle Christianson MD [STAFF PHYSICIAN] - Keep Marlen appointment
[2020-04-10 01:01] VITALS: BP 145/82; PULSE 78; RESP 16; O2SAT 98
== END 2020-04-10 01:02 | disposition home or self-care (01) ==
PROVIDERS: Emergency Provider Emergency Medicine
DX: T83.098A Other mechanical complication of other urinary catheter, initial encounter (principal); E11.9 Type 2 diabetes mellitus without complications
CPT/HCPCS: 99282

== ENCOUNTER → 2020-04-17 11:36 | Outpatient (CLI) | payer OTHER, SELFPAY ==
[2020-04-03 15:43] VITALS: BMI 36.7
[2020-04-09 23:11] VITALS: BMI 34.9
--- NOTE | 2020-04-17 11:50 | RAD_ITS ---
CLINICAL HISTORY: Female, 64 years old. Bladder injury following hysterectomy. PROCEDURE: Cystogram. FLUOROSCOPY TIME (if supplied): (37 seconds) minutes/seconds 200 mL of contrast installed into the bladder in a retrograde fashion through the indwelling Gregory catheter. The radiologist installed the contrast into the bladder. TECHNIQUE: (All elements of maximal sterile barrier technique followed, including US elements as applicable) 200 cc of Cystografin was inserted into the urinary bladder. No evidence of leakage. The bladder is unremarkable. RAD/Cystography min 3 Views IMPRESSION: Unremarkable cystogram. Electronically Signed: Salvador Monroy, at 15:09 EDT , Service support ,
== END ==
PROVIDERS: Referring Provider Urology; Visit Provider Urology
DX: N81.10 Cystocele, unspecified (principal); Z93.50 Unspecified cystostomy status
CPT/HCPCS: 51600; 74430; Q9965

== ENCOUNTER 2020-08-14 09:18 | Observation (INO) | payer SELFPAY, OTHER ==
[2020-05-17 11:27] VITALS: BMI 34.9
[2020-08-13 09:40] LABS: Hematocrit 41.7 % (37-47); Hemoglobin 13.4 g/dL (12.0-15.0); Mean Corp Hgb Conc 32.1 g/dL (32-36); Mean Corpuscular Hgb 30.6 pg (27.0-32.0); Mean Corpuscular Volume 95.2 fL (81-99); Mean Platelet Vol. 9.9 fl (6.2-12.0); Platelet Count 276 K/mm3 (150-450); RBC Distribution Width CV 13.2 % (11.6-14.6); RBC Distribution Width SD 46.3 fl (35.1-43.9); Red Blood Count 4.38 M/mm3 (4.2-5.4)
[2020-08-13 10:11] LABS: Anion Gap 6 (5-15); BUN 17 mg/dL (7-18); BUN/Creat Ratio 21.3 RATIO (10-20); Calcium,Total 9.6 mg/dL (8.5-10.1); Chloride 103 mmol/L (98-107); EST Glomerular Filtration Rate 77 mL/min (>60); Est Glom Filt Rate - Afr Amer 93 mL/min (>60); Glucose 103 mg/dL (74-106); Potassium 3.9 mmol/L (3.5-5.1); Sodium Level 138 mmol/L (136-145)
[2020-08-13 10:32] LABS: Thyroid Stim Hormone (TSH) 2.19 uIU/mL (0.358-3.74)
[2020-08-14] VITALS (13 sets, daily range): BP systolic 120–161; BP diastolic 59–89; PULSE 65–102; RESP 16–18; TEMP 36.3–37.1; O2SAT 94–100; BMI 35.9
[2020-08-14] MEDS: Lactated Ringers 1,000 ML 100 ML IV ×3 (06:31→21:23)
--- NOTE | 2020-08-14 07:25 | PCM.OPRPT ---
Problem List (1) Cystocele with rectocele Status: Acute (2) Vaginal vault prolapse Status: Acute (3) Stress incontinence Status: Acute Report of Operation Date of Procedure: 08/14/20 Pre-Operative Diagnosis: Cystocele, rectocele, vaginal vault prolapse, stress incontinence Post-Operative Diagnosis: Same Surgery/Procedure Performed:: Anterior repair with Dermis and posterior repair, bilateral sacrospinous ligament fixation, mid urethral sling insertion, cystourethroscopy with bilateral ureteral catheterization Type of Anesthesia:: General Estimated Blood Loss (mL): 50cc Description of Procedure: The patient is a 64-year-old female who underwent a hysterectomy with attempted prolapse repair several months ago, and had a cystotomy. The prolapse repair was aborted. She now presents for management of her prolapse. Informed consent was obtained including a discussion of COVID-19. The patient was taken to the operating room and placed on the operating room table. Anesthesia monitored the head, neck, airway, IV access and vital signs throughout the case. Once anesthesia was appropriately administered the patient was placed into dorsal lithotomy in Trendelenburg position. Her anterior vaginal wall was isolated and injected submucosally with 1% lidocaine with epinephrine. A midline incision was then made 2 and half centimeters in length and sharp and blunt dissection was performed on either side down to bilateral ischial spines and sacrospinous ligaments. The ligaments were dissected clear from surrounding tissue. Monodek sutures were then passed through the sacrospinous ligament using the Capio device. The sutures were then taken through a piece of dermis and then through the vaginal apex. The dermis was tacked with 2-0 Vicryl interrupted sutures to the midline apex, bladder neck, the remaining pubocervical fascia white lines bilaterally. At this time the midline incision was closed using running interlocking 2-0 Vicryl. Of note, I anticipated scar tissue from her previous repair, there was not much of note. Her tissue planes dissected very easily. At this time the sacrospinous sutures were tied into place and the anterior prolapse was reduced. Posteriorly there was not as much prolapse and the decision was made to not use dermis posteriorly. The submucosa was injected with 1% lidocaine with epinephrine. A midline incision was made followed by sharp and blunt dissection until the rectovaginal fascia was identified. It was brought together in a 2 layer closure over the rectocele defect. The perineal body was minimally reconstructed. The incision was then closed with running interlocking 2-0 Vicryl. The mid urethra was then identified and injected submucosally. And a midline incision was made. Sharp and blunt dissection was performed on either side of the urethra. Care was taken to avoid entrance into the urethra. Using the trochars, the Altis mid urethral sling was inserted without complication. The sling lay flat against the urethra. The tensioning suture was cut. The midline incision was closed using running interlocking 2-0 Vicryl. The Gregory catheter was removed and a cystourethroscopy was performed through the urethra under direct visualization. Bilateral ureteral orifices were in their correct anatomic position. They were intubated with a 5 [place] whistle-tip catheter that was inserted to 20 cm bilaterally with no evidence of obstruction, injury or blood. There were no foreign objects, lacerations, or injury to any part of the bladder or urethral mucosa. The Gregory catheter was replaced. The vagina was packed with Premarin cream and vaginal packing. She was awakened and taken to the recovery room in good condition. There were no complications during this procedure. Grafts/Implants Used: Dermis, Altis - Complications none - Admit VTE Documentation VTE Present on Admission: Yes VTE Mechan Device Prophylaxis: SCD's VTE Pharm Prophylaxis ordered?: Yes
[2020-08-14] MEDS: Cefazolin 2 GM in 0.9% Normal Saline 100 ML IV (07:26)
[2020-08-14] MEDS: Lubricating Jelly 60 GM Tube 30 GM TOPICAL (07:59)
[2020-08-14] MEDS: Estrogens,Conj. 1 Tube 1 DOSE (09:02)
[2020-08-14] MEDS: Cefazolin 1 GM/50 ML BAG IV ×2 (12:51→21:18)
[2020-08-14] MEDS: Enoxaparin 40 MG/0.4 ML Syringe SC (15:05)
[2020-08-14] MEDS: Docusate Sodium 100 MG Capsule PO (21:17)
[2020-08-14] MEDS: 0.9% Saline Lock 10 ML Syringe IV (21:19)
[2020-08-15 03:13] VITALS: BP 128/62; PULSE 90; RESP 18; TEMP 36.7; O2SAT 96
[2020-08-15 05:36] VITALS: BP 123/58; PULSE 70; RESP 18; TEMP 36.7; O2SAT 95
[2020-08-15] MEDS: Enoxaparin 40 MG/0.4 ML Syringe SC (05:40)
[2020-08-15] MEDS: Levothyroxine 150 MCG Tablet PO (05:40)
[2020-08-15] MEDS: Cefazolin 1 GM/50 ML BAG IV (05:40)
--- NOTE | 2020-08-15 07:45 | PCM.DC.URO ---
Discharge Diet: No Restrictions Discharge Activity: May Shower, - - No tub bathing, no hot tubs, no swimming, no lifting over 5 pounds, no strenuous activity or exercise, no sexual activity, nothing per vagina except patient is to continue estrogen cream use May resume sexual activity in: 8 weeks Lifting Restrictions: 5 pounds Call your doctor if your incision/area has: Continuous Slow Oozing, Sudden Increased Bleeding, Increased Pain/ Swelling, Increased Redness, Foul Smelling Discharge, Swelling at the incision site Call your doctor if you observe: Fever of 101 or Higher, Inability to urinate, Inability to have a bowel movement, Using more than one pad per hour Allergies/Adverse Reactions: Allergies No Known Allergies Allergy (Verified 08/14/20 06:20) Medications to take at Discharge furosemide 20 mg tablet 20 mg PO DAILY 11/02/19 levothyroxine 150 mcg tablet 150 mcg PO DAILY 11/02/19 lisinopril 10 mg tablet 10 mg PO DAILY 11/02/19 Cephalexin [Keflex] 500 mg PO Q12 3 Days #6 cap 08/15/20 Docusate Sodium [Colace] 100 mg PO BID #60 cap 08/15/20 Oxycodone HCl/Acetaminophen [Percocet 5/325] 1 tablet PO Q8H PRN PRN 7 Days #20 tablet 08/15/20 The following prescriptions were given: Docusate Sodium [Colace] 100 mg PO BID #60 cap Transmission Status: Pending to [facility] Cephalexin [Keflex] 500 mg PO Q12 3 Days #6 cap Transmission Status: Pending to [facility] Oxycodone HCl/Acetaminophen [Percocet 5/325] 1 tablet PO Q8H PRN PRN 7 Days #20 tablet PRN Reason: Pain Transmission Status: Sent to [facility] Primary Care Physician: Roman Hansen MD [Primary Care Provider] - Test Results: Test results from this visit will be discussed in further detail at your follow-up appointment, if applicable. Please Follow Up With: Krystle Christianson MD When: call office for appt. Proposed Discharge Date: 08/15/20
--- NOTE | 2020-08-15 07:46 | PCM.PN.BLA ---
Progress Note Patient is doing well. She has no pain. She has no nausea and is tolerating oral intake. All signs are good, Gregory is draining clear yellow urine. SCDs are in place. Gregory and vaginal packing removed without incident. Assessment/ plan postop day #1 vaginal reconstruction Await trial of void Home today STROKE Vital Signs/Narrative: Vital Signs Temp Pulse Resp BP Pulse Ox 08/15/20 05:36 98.0 F 70 18 123/58 H 95
[2020-08-15 10:00] VITALS: PULSE 85
[2020-08-15 10:18] VITALS: BP 147/79; PULSE 85; RESP 18; TEMP 36.6; O2SAT 98
[2020-08-15] MEDS: Docusate Sodium 100 MG Capsule PO (11:34)
[2020-08-15] MEDS: Lisinopril 10 MG Tablet PO (11:35)
[2020-08-15 11:56] VITALS: BP 131/71; PULSE 80; RESP 18; TEMP 36.6; O2SAT 95
== END 2020-08-15 13:20 | disposition home or self-care (01) ==
LOC: SDC 10:32 → MS3 10:32
PROVIDERS: Anesthesiology; Admitting Provider Urology; Referring Provider Urology; Visit Provider Urology
PROC: (CPT 57260; principal; 2020-08-14 07:15)
DX: N99.3 Prolapse of vaginal vault after hysterectomy (principal); N39.3 Stress incontinence (female) (male); Z20.828 Contact with and (suspected) exposure to other viral communicable diseases; I10 Essential (primary) hypertension; G25.81 Restless legs syndrome; Z79.899 Other long term (current) drug therapy; E11.9 Type 2 diabetes mellitus without complications; E66.9 Obesity, unspecified; E03.9 Hypothyroidism, unspecified; M19.90 Unspecified osteoarthritis, unspecified site; Z68.36 Body mass index [BMI] 36.0-36.9, adult
CPT/HCPCS: 00942; 57260; 57288; 36415; 80048; 84443; 85027; 87426; 96361; 96365; 96366; 96372; 99218; 99251; C9803; J7120; A4216; C1758; G0378; G0379; G0463; J2405